=== PATIENT | female | born 1960 | race Hispanic/Latino ===

== ENCOUNTER 2020-08-01 10:26 | Emergency (ER) | payer SELFPAY | END 2020-08-01 11:55 | disposition home or self-care (01) | LOC: ERS 10:26 | DX: S00.262A Insect bite (nonvenomous) of left eyelid and periocular area, initial encounter (principal); S60.562A Insect bite (nonvenomous) of left hand, initial encounter; H00.034 Abscess of left upper eyelid; W57.XXXA Bitten or stung by nonvenomous insect and other nonvenomous arthropods, initial encounter | CPT/HCPCS: 99283 ==